=== PATIENT | female | born 1950 | race Two or more races ===

== ENCOUNTER 2024-02-08 16:30 | Inpatient (IN) | payer MEDICARE, MEDICAID ==
[~2024-02-08] VITALS: Ht 152.4 cm; Wt 81.8 kg
--- NOTE | 2024-02-08 16:44 | ED.PDOC ---
Altered Mental Status HPI Comments 73 y.o female presents to the ED via EMS for an evaluation of confusion. EMS reports called today stating he found patient on the ground next to her bed, did not hear her fall. Patient was diagnosed with ovarian cancer and then brain cancer which changed her baseline and is A+O x 1 per EMS. Patient was foun d soiled on the floor by EMS, unable to obtain information by patient. No head pain, SOB, or other symptoms recorded. Time Seen by MD: 16:35 Reviewed Notes: Nurses Notes, Benefits Advisor Notes, Medications, Allergies Allergies: Coded Allergies: NO KNOWN ALLERGIES (Unverified , 02/08/24) Information Source: Emergency Med Personnel Mode of Arrival: EMS Severity: Unable to Care for Self Timing: Came on: Gradually Duration: Since onset Prehospital treatment: 12 Lead EKG, International Marketing Manager Quality: Change in Behavior, Confusion Recent: None History of: Other Past Medical History PAST MEDICAL HISTORY: Cancer Surgical History: Unobtainable GAME WARDEN History: Unknown Family History Family History: Unknown Social History Smoker: Unknown Alcohol: Unknown Drugs: Unknown Lives In: Home Unable to Obtain due to: Altered Mental Status Physical Exam General Appearance: Moderate Distress HEENT: Normal ENT Inspection, Pharynx Normal, TMs Normal Neck: Full Range of Motion, Non-Tender, Normal, Normal Inspection Respiratory: Chest Non-Tender, Lungs Clear, No Accessory Muscle Use, No Respiratory Distress, Normal Breath Sounds Cardiovascular: No Edema, No JVD, No Murmur, No Gallop, Normal Peripheral Pulses, Tachycardia Breast Exam: Deferred Gastrointestinal: Other (Midline scar) Genitalia: Deferred Pelvic: Deferred Rectal: Deferred Extremities: No pedal edema Musculoskeletal : Apperance: Normal Neurologic: Alert Cerebellar Function: NOT DONE Reflexes: NOT DONE Skin: Dry, Normal Color, Warm Peripheral Pulses: 3+ Radial (R), 3+ Radial (L) Lymphatic: No Adenopathy Was a procedure done? Was a procedure done?: No Differential Diagnosis (ALOC) Differential Diagnosis: Dehydration, Sepsis, Closed Head Injury, Other X-Ray, Labs, Meds, VS Vital Signs Date Time Temp Pulse Resp B/P (MAP) Pulse Ox O2 Delivery O2 Flow Rate FiO2 02/08/24 16:35 99.2 105 18 128/73 (91) 94 Patient appropriate. Vitals stable. History of ovarian cancer with metastasis. Possible fall. No obvious injury. Difficult to communicate with the patient. Waiting for family. Reviewed her previous visit. Explained to the patient. Continue monitor and storage bin tender. EKG reviewed does not show any acute changes. Will be followed by night provider Lane. Time of 1ST Reevaluation: 16:44 Reevaluation 1ST: Unchanged Patient Education/Counseling: Other Family Education/Counseling: No Family Present Assigned to Dr. Sherman Departure 1 Departure Time of Disposition: 16:56 Impression: Primary Impression: Head injury Qualified Codes: S09.90XA - Unspecified injury of head, initial encounter Disposition: ADMITTED INPATIENT Admit to: Med Surg Condition: Guarded Critical Care Note Critical Care Time?: Yes (45 min-critical care time only) Stability Stability form required: No I personally scribed for DOMI SHAW MD ([email or web address]) on 02/08/24 at 16:44. Electronically submitted by Lesia Manzano ([facility]). DOMI SHAW MD Feb 08, 2024 16:44
[2024-02-08] MEDS: SODIUM CHLORIDE 0.9% 1,000 ML IV ONE ×2 (16:45)
--- NOTE | 2024-02-08 17:31 | DVH ---
EXAM: CT HEAD WITHOUT CONTRAST INDICATION: FALL TECHNIQUE: CT of the head without intravenous contrast. Radiation Dose Information: CT Dose: CTDI volume is 53.19 mGy. Dose-length product is 941.96 mGy*cm The dose indicators for CT are the volume Computed Tomography (CT) Dose Index (CTDIvol) and the Dose Length Product (DLP), and are measured in units of mGy and mGy-cm, respectively. These indicators are not patient dose, but values generated from the CT scanner acquisition factors. The report includes radiation exposure data for exposures received during this examination. COMPARISON: None FINDINGS: There is no evidence of acute intracranial hemorrhage, extra-axial collection, mass effect, midline s hift, herniation or hydrocephalus. Status post craniotomy posterior right parietal skull with area of encephalomalacia may be postoperat eli. The ventricles, sulci and cisterns are age appropriate. The vega-white differentiation is intact. Patchy periventricular and subcortical white matter hypoattenuation is nonspecific but may be related to small vessel ischemic disease. The visualized paranasal sinuses and mastoid air cells are clear. The surrounding soft tissues and osseous structures are unremarkable. IMPRESSION: 1. Status post right craniotomy posterior parietal lobe with underlying area of encephalomalacia most likely postoperative. 2. No findings of acute hemorrhage 3. No paranasal sinus disease 4. No displaced skull fractures.
[2024-02-08 17:55] LABS: Basophils # (auto) 0 10 ^3/uL (0-0.2); Basophils % (auto) 0.2 % (0.0-2.0); Eosinophils # (auto) 0 10 ^3/uL (0-0.8); Eosinophils % (auto) 0.2 % (0.0-7.0); Hematocrit 41.8 % (36.0-46.0); Hemoglobin 14.2 g/dL (12.2-16.2); Lymphocytes # (auto) 0.9 10 ^3/uL (0.4-5.4); Lymphocytes % (auto) 13.6 % (10.0-50.0); Mean Corpuscular Hemoglobin 31.5 pg (28.0-32.0); Mean Corpuscular Volume 92.6 fL (80.0-100.0); Monocytes # (auto) 0.7 10 ^3/uL (0-1.3); Monocytes % (auto) 10.7 % (0.0-12.0); Neutrophils # (auto) 5.1 10 ^3/uL (1.6-8.6); Neutrophils % (auto) 75.3 % (37.0-80.0); Nucleated Red Blood Cells % 0.1 %; Platelet Count (auto) 169 10^3/uL (140-450); Red Blood Cells 4.52 10^6/uL (4.0-5.20); Red Cell Distribution Width 13.8 % (11.8-14.3); White Blood Cell 6.8 10^3/uL (4.4-10.8)
[2024-02-08 17:59] LABS: Chloride 106 mmol/L (98-107); Potassium 3.5 mmol/L (3.5-5.1); Sodium 139 mmol/L (136-145)
[2024-02-08 18:00] LABS: Anion Gap 10 (5-15); Carbon Dioxide 23 mmol/L (20-31)
[2024-02-08 18:01] LABS: Calcium 9.5 mg/dL (8.7-10.4)
[2024-02-08 18:05] LABS: BUN/Creatinine Ratio 17.3 (10.0-20.0); Blood Urea Nitrogen 13 mg/dL (9-23); Glucose 159 mg/dL (74-106)
--- NOTE | 2024-02-08 19:07 | ECG ---
[facility] Test Date: 2024-02-08 Test Time: 16:55:46 Pat Name: GREG DAMON Department: ER Room: Gender: F Theatre Manager: NOEMI : 1950 Requested By: DOMI SHAW Order Number: [id number] Reading MD: Measurements Intervals [place] Rate: 106 P: 46 [place]: 165 QRS: 1 QRSD: 89 T: 21 QT: 358 QTc: 476 Interpretive Statements Sinus tachycardia Borderline T abnormalities, anterior leads Please click the below link to view image of tracing.
[2024-02-08 19:10] VITALS: PULSE 98; RESP 18; O2SAT 94
[2024-02-08 19:25] VITALS: PULSE 100; RESP 18; O2SAT 95
[2024-02-08] MEDS ORDERED: MORPHINE SULFATE INJ 2 MG/ml SYRG IV PRN (20:30)
[2024-02-08] MEDS ORDERED: NITROGLYCERIN 0.4 MG SL TAB SL PRN (20:30)
[2024-02-08] MEDS ORDERED: ONDANSETRON HCL 4 MG/2 ML VIAL IV PRN (20:30)
[2024-02-08] MEDS ORDERED: HYDROcodone-ACET 5/325MG TAB PO PRN (20:30)
--- NOTE | 2024-02-08 21:25 | DVHHPRES ---
History of Present Illness Resident Creating Document: DEE CUEVAS RESIDENT History of Present Illness This is a 72 years old female with past medical history of ovarian cancer with brain metastasis, status post craniotomy, advanced dementia presented to the ED via EMS for an evaluation of altered level of consciousness. According to the family the patient was unresponsive and fall today morning and was not able to answer any questions that prompted this visit. Daughter also mentioned 2 days ago the patient had sore throat and fever and became more confused, restless and home health nurse was called the EMS because the patient's heart rate was 115 and blood sugar was 264. She was diagnosed with ovarian cancer 20 years ago and underwent craniotomy for brain metastasis 16 years ago and she is following with neurologist in [facility] for her dementia. The patient family did not mentioned any history of recent chest pain, shortness of breath, dizziness, abdominal pain, nausea, vomiting or any change in bowel and bladder habit. Past Medical History Ovarian cancer, dementia Past Surgical History Craniotomy Family History: None Smoke: No ALCOHOL: none Drugs: None Lives: with Family Review of Systems Review of Systems Review of system could not be assessed as patient is A&O x1 Allergies: Coded Allergies: NO KNOWN ALLERGIES (Unverified , 02/08/24) Medications Current Medications Medications Dose Ordered Sig/Radha Route Start Time Stop Time Status Last Admin Dose Admin Sodium Chloride 10 ml Q8HR IV 02/08/24 22:00 Acetaminophen/ Hydrocodone Bitart 1 tab Q4HP PRN PO 02/08/24 20:30 Ondansetron HCl 4 mg Q4HP PRN IV 02/08/24 20:30 Nitroglycerin 0.4 mg Q5MINP PRN SL 02/08/24 20:30 Morphine Sulfate 2 mg Q30M PRN IV 02/08/24 20:30 Exam Vital Signs Vital Signs Date Time Temp Pulse Resp B/P (MAP) Pulse Ox O2 Delivery O2 Flow Rate FiO2 02/08/24 19:10 98 18 94 Room Air* 0 21 02/08/24 19:10 141/68 (92) 02/08/24 16:35 99.2 Exam Physical examination: General Appearance: Alert, Oriented X3, Cooperative, No acute distress HEENT: Atraumatic, PERRLA, EOMI, Mucous membrane moist/pink Respiratory: Clear to auscultation, Normal air movement Cardiovascular: Regular rate, Normal S1, Normal S2, No murmurs, no chest wall tenderness Abdominal: Normal bowel sounds, Soft, No tenderness, No hepatospenomegaly, No masses Extremities: No clubbing, No cyanosis, No edema, Normal pulses, No tenderness/swelling Skin: No rashes, No breakdown, No significant lesion Neuro: Normal gait, Normal speech, Strength at 5/5 X4 ext, Normal tone, Sensa tion intact, grossly intact cranial nerves. Psych/Mental Status: Mental status NL, Mood NL Labs/Xrays Labs Test 02/08/24 17:11 Range/Units White Blood Count 6.8 4.4-10.8 10^3/uL Red Blood Count 4.52 4.0-5.20 10^6/uL Hemoglobin 14.2 12.2-16.2 g/dL Hematocrit 41.8 36.0-46.0 % Mean Corpuscular Volume 92.6 80.0-100.0 fL Mean Corpuscular Hemoglobin 31.5 28.0-32.0 pg Mean Corpuscular Hemoglobin Concent 34.0 32.0-36.0 g/dL Red Cell Distribution Width 13.8 11.8-14.3 % Platelet Count 169 140-450 10^3/uL Mean Platelet Volume 6.8 L 6.9-10.8 fL Neutrophils (%) (Auto) 75.3 37.0-80.0 % Lymphocytes (%) (Auto) 13.6 10.0-50.0 % Monocytes (%) (Auto) 10.7 0.0-12.0 % Eosinophils (%) (Auto) 0.2 0.0-7.0 % Basophils (%) (Auto) 0.2 0.0-2.0 % Neutrophils # (Auto) 5.1 1.6-8.6 10 ^3/uL Lymphocytes # (Auto) 0.9 0.4-5.4 10 ^3/uL Monocytes # (Auto) 0.7 0-1.3 10 ^3/uL Eosinophils # (Auto) 0 0-0.8 10 ^3/uL Basophils # (Auto) 0 0-0.2 10 ^3/uL Nucleated Red Blood Cells 0.1 % Sodium Level 139 136-145 mmol/L Potassium Level 3.5 3.5-5.1 mmol/L Chloride Level 106 98-107 mmol/L Carbon Dioxide Level 23 20-31 mmol/L Anion Gap 10 5-15 Blood Urea Nitrogen 13 9-23 mg/dL Creatinine 0.75 0.550-1.02 mg/dL Glomerular Filtration Rate Calc 85 >90 mL/min BUN/Creatinine Ratio 17.3 10.0-20.0 Serum Glucose 159 H 74-106 mg/dL Calcium Level 9.5 8.7-10.4 mg/dL Assessment/Plan Assessment/Plan Assessment and plan: # Acute metabolic encephalopathy due to unspecified cause - CT head revealed status post right craniotomy posterior parietal lobe with underlying area of encephalomalacia most likely postoperative without any acute intracranial abnormalities. - ammonia level - CMP revealed normal study - Patient is A&O x1 - Monitor the vitals closely # Advanced dementia - Continue donepezil 10 mg p.o. daily and memantine 5 mg p.o. daily # Type 2 diabetes mellitus, hemoglobin A1c 6.5 - Mild sliding scale of insulin # Hypokalemia - Replenished # DVT prophylaxis - Lovenox 40 mg sc daily Goal of care could not be discussed as patient is A&O x1 Plan of treatment discussed with Dr. Carrasco Plan discussed with: Patient, Other My Orders Orders - DEE CUEVAS RESIDENT Procedure Category Date Status Time Admit ADMIT 02/08/24 Transmitted 20:24 Code Status CODE 02/08/24 Transmitted 20:24 Sodium Chloride Lock PHA 02/08/24 In Process (Saline Lock Ns) 22:00 Oxygen Per Hour RT 02/08/24 Transmitted 20:24 Hydrocodone-Acet PHA 02/08/24 In Process 5/325mg Tab ([place] 20:30 Ondansetron Hcl PHA 02/08/24 In Process (Zofran) 20:30 Complete Blood Count LAB 02/09/24 Verified 04:00 Comprehensive LAB 02/09/24 Verified Metabolic Panel 04:00 Nitroglycerin PHA 02/08/24 In Process Sublingual (Ntrostat 20:30 Morphine Sulfate PHA 02/08/24 In Process Injection 20:30 Oxygen By Nasal RT 02/08/24 Transmitted Cannula 20:24 Stat Ekg For Chest ALESSANDRO 02/08/24 In Process Pain 20:24 Notify Of Changes ALESSANDRO 02/08/24 In Process From Base 20:24 Shotgun Shell Assembly Machine Adjuster For ALESSANDRO 02/08/24 In Process 24 Hours 20:24 Emergency Dysrhythmia [facility] 02/08/24 In Process Protocol 20:24 Rhythm Strips Once [facility] 02/08/24 In Process Every Shift 20:24 Date of Service: Feb 08, 2024 Billing Provider: LEIDY CARRASCO MD Common Visit Codes: 72313-PHIOKBQ INP/OBS CARE (HIGH) Secondary Visit Codes: 73023-[id number] CARE PLAN 30 MINUTES DEE CUEVAS RESIDENT Feb 08, 2024 21:25 LEIDY CARRASCO MD Feb 09, 2024 17:40
--- NOTE | 2024-02-08 22:39 | DVH ---
CHEST RADIOGRAPH Indication:shortness of breath Technique: Single frontal view of the chest was obtained Comparison: None FINDINGS: Lines and Tubes: None Lungs: No focal consolidation. Pleura: No effusion. No pneumothorax. Cardiomediastinal contours: Unremarkable Bones: No acute osseous abnormality. IMPRESSION: 1. No acute cardiopulmonary disease.
[2024-02-08] MEDS: SODIUM CHLOR 0.9% PF (SALINE LOCK) 10ML VIAL/SYR IV SCH (23:28)
[2024-02-09] MEDS ORDERED: DEXTROSE (50%) 50ML SYRG IV PRN (01:30)
[2024-02-09 01:54] LABS: Basophils # (auto) 0 10 ^3/uL (0-0.2); Basophils % (auto) 0.4 % (0.0-2.0); Eosinophils # (auto) 0 10 ^3/uL (0-0.8); Eosinophils % (auto) 0.3 % (0.0-7.0); Hematocrit 40.2 % (36.0-46.0); Hemoglobin 13.7 g/dL (12.2-16.2); Lymphocytes # (auto) 1.2 10 ^3/uL (0.4-5.4); Lymphocytes % (auto) 17.8 % (10.0-50.0); Mean Corpuscular Hemoglobin 31.4 pg (28.0-32.0); Mean Corpuscular Hgb Conc. 34.1 g/dL (32.0-36.0); Mean Corpuscular Volume 92.1 fL (80.0-100.0); Monocytes # (auto) 0.7 10 ^3/uL (0-1.3); Neutrophils # (auto) 4.7 10 ^3/uL (1.6-8.6); Neutrophils % (auto) 71.5 % (37.0-80.0); Nucleated Red Blood Cells % 0.2 %; Platelet Count (auto) 159 10^3/uL (140-450); Red Blood Cells 4.36 10^6/uL (4.0-5.20); Red Cell Distribution Width 13.9 % (11.8-14.3); White Blood Cell 6.6 10^3/uL (4.4-10.8)
[2024-02-09 02:12] LABS: Alanine Aminotransferase 24 U/L (7-40); Albumin 3.8 g/dL (3.2-4.8); Alkaline Phosphatase 56 U/L (46-116); Anion Gap 9 (5-15); Aspartate Aminotransferase 21 U/L (13-40); BUN/Creatinine Ratio 15.9 (10.0-20.0); Bilirubin, Total 0.6 mg/dL (0.2-1.0); Blood Urea Nitrogen 11 mg/dL (9-23); Carbon Dioxide 25 mmol/L (20-31); Chloride 105 mmol/L (98-107); Glucose 153 mg/dL (74-106); Potassium 3.2 mmol/L (3.5-5.1); Sodium 139 mmol/L (136-145); Total Protein 6.4 g/dL (5.7-8.2)
[2024-02-09] MEDS: ACCU-CHEK COMFORT CURVE STRIP VI SCH (06:46)
[2024-02-09] MEDS: InsuLIN REG 1unit/0.01ml Soln (100units/ml) SC SCH (06:46)
[2024-02-09] MEDS: POTASSIUM EFFERVESENT TAB 25 MEQ PO ONE (06:59)
[2024-02-09 07:31] VITALS: PULSE 80; RESP 16; O2SAT 96
[2024-02-09 09:11] VITALS: PULSE 79; RESP 17; O2SAT 98
[2024-02-09] MEDS: MEMANTINE HCL 5 MG TAB PO SCH (09:35)
[2024-02-09] MEDS: ENOXAPARIN SOD 40 MG/0.4 ML SYRINGE SC SCH (09:37)
[2024-02-09] MEDS ORDERED: MEMA7CAP8 PO (10:55)
[2024-02-09] MEDS ORDERED: SITA50TA28 (10:55)
[2024-02-09] MEDS ORDERED: CHOL20007 OR (10:55)
[2024-02-09] MEDS ORDERED: ROSU5TAB24 PO (10:55)
[2024-02-09] MEDS ORDERED: LATA0.008 EACHEYE (10:55)
[2024-02-09 10:58] VITALS: BP 131/74; PULSE 79; RESP 17; TEMP 97.7; O2SAT 98
[2024-02-09 11:06] LABS: Urine Bacteria None Seen /hpf (None Seen)
[2024-02-09 11:39] LABS: Urine Blood Negative /uL (Negative); Urine Clarity Clear (Clear); Urine Color Yellow (Yellow); Urine Protein, UAD TRACE (Negative); Urine Urobilinogen Normal (Negative); Urine WBC 2 /hpf (0 - 5)
[2024-02-09 11:47] LABS: Amphetamine Screen, Urine Neg (NEGATIVE); Benzodiazephine Screen, Urine Neg (NEGATIVE)
[2024-02-09 11:48] LABS: Barbiturate Scree,Urine Neg (NEGATIVE); Cannabinoid Screen, Urine Neg (NEGATIVE); Cocaine Screen, Urine Neg (NEGATIVE); Opiate Scree,Urine Neg (NEGATIVE); Phencyclidine Screen, Urine Neg (NEGATIVE)
--- NOTE | 2024-02-09 13:22 | DVHDS2 ---
Discharge Summary Date of Admission Feb 08, 2024 at 20:24 Date of Discharge: Feb 09, 2024 Labs/Diagnostic Data: Laboratory Results Test 02/09/24 11:30 02/09/24 10:00 02/09/24 07:39 02/09/24 01:39 Urine Color Yellow (Yellow) Urine Clarity Clear (Clear) Urine pH 6.0 (5.0-9.0) Urine Specific [place] 1.020 (1.001-1.035) Urine Protein Trace (Negative) Urine Ketones Negative (Negative) Urine Blood Negative /uL (Negative) Urine Nitrite Negative (Negative) Urine Bilirubin Negative (Negative) Urine Urobilinogen Normal mg/dL (Negative) Urine Leukocyte Esterase Negative /uL (Negative) Urine RBC 1 /hpf (0 - 4) Urine WBC 2 /hpf (0 - 5) Urine Squamous Epithelial Cells Few /hpf (<5) Urine Bacteria None seen /hpf (None Seen) Urine Glucose 2+ mg/dL (Normal) Urine Opiates Screen Neg (NEGATIVE) Urine Fentanyl Screen Neg (NEGATIVE) Urine Barbiturates Screen Neg (NEGATIVE) Urine Phencyclidine Screen Neg (NEGATIVE) Urine Amphetamines Screen Neg (NEGATIVE) Urine Benzodiazepines Screen Neg (NEGATIVE) Urine Cocaine Screen Neg (NEGATIVE) Urine Cannabinoids Screen Neg (NEGATIVE) POC Glucose 143 mg/dl (70-106) White Blood Count 6.6 10^3/uL (4.4-10.8) Red Blood Count 4.36 10^6/uL (4.0-5.20) Hemoglobin 13.7 g/dL (12.2-16.2) Hematocrit 40.2 % (36.0-46.0) Mean Corpuscular Volume 92.1 fL (80.0-100.0) Mean Corpuscular Hemoglobin 31.4 pg (28.0-32.0) Mean Corpuscular Hemoglobin Concent 34.1 g/dL (32.0-36.0) Red Cell Distribution Width 13.9 % (11.8-14.3) Platelet Count 159 10^3/uL (140-450) Mean Platelet Volume 6.5 fL (6.9-10.8) Neutrophils (%) (Auto) 71.5 % (37.0-80.0) Lymphocytes (%) (Auto) 17.8 % (10.0-50.0) Monocytes (%) (Auto) 10.0 % (0.0-12.0) Eosinophils (%) (Auto) 0.3 % (0.0-7.0) Basophils (%) (Auto) 0.4 % (0.0-2.0) Neutrophils # (Auto) 4.7 10 ^3/uL (1.6-8.6) Lymphocytes # (Auto) 1.2 10 ^3/uL (0.4-5.4) Monocytes # (Auto) 0.7 10 ^3/uL (0-1.3) Eosinophils # (Auto) 0 10 ^3/uL (0-0.8) Basophils # (Auto) 0 10 ^3/uL (0-0.2) Nucleated Red Blood Cells 0.2 % Sodium Level 139 mmol/L (136-145) Potassium Level 3.2 mmol/L (3.5-5.1) Chloride Level 105 mmol/L (98-107) Carbon Dioxide Level 25 mmol/L (20-31) Anion Gap 9 (5-15) Blood Urea Nitrogen 11 mg/dL (9-23) Creatinine 0.69 mg/dL (0.550-1.02) Glomerular Filtration Rate Calc 93 mL/min (>90) BUN/Creatinine Ratio 15.9 (10.0-20.0) Serum Glucose 153 mg/dL (74-106) Calcium Level 9.0 mg/dL (8.7-10.4) Total Bilirubin 0.6 mg/dL (0.2-1.0) Aspartate Amino Transferase (AST) 21 U/L (13-40) Alanine Aminotransferase (ALT) 24 U/L (7-40) Alkaline Phosphatase 56 U/L (46-116) Ammonia 17 umol/L (11-32) Total Protein 6.4 g/dL (5.7-8.2) Albumin 3.8 g/dL (3.2-4.8) Folic Acid 22.04 ng/mL (>5.38) Test 02/08/24 17:15 Hemoglobin A1c 6.5 % A1C (<5.7) Vitamin B12 Level 424 pg/mL (211-911) Vitamin D 25-Hydroxy 47.6 ng/mL (30.0-100) Thyroid Stimulating Hormone (TSH) 1.15 uIU/mL (0.55-4.78) Other Laboratory Tests 02/09/24 01:39 Brief Hx & Hospital Course: Final diagnoses: Altered level of consciousness and weakness, undetermined etiology No infection Underlying dementia History of metastatic ovarian cancer to the brain status post craniotomy Hypokalemia, replaced COVID+ Influenza negative 73-year-old female who was admitted for altered level of consciousness and weakness. According to her who is at the bedside he said she became sick after she ate she vomited once and she was unresponsive She was admitted overnight and workup was mostly negative including chest x-ray and urinalysis and CT scan of the head which showed old surgical changes but no acute pathology Her white count is normal No fever The patient is asymptomatic now and would like to go home Discharged home on the same home medications and follow up with her primary care physician as soon as possible Add Vitamins D3, C and Zinc Condition at Discharge: Stable Final Diagnosis/Problems List Altered level of consciousness most likely due to dementia Alzheimer's dementia History of metastatic ovarian cancer Discharge Disposition: Home SNF Discharge Will this Physician continue t: No Discharge Instruct/Medications Diet: Cardiac 2g Na,low cholest Activity: No Restrictions, As Tolerated Follow Up/Referral: PCP as soon as possible Medications: Same home medications Discharge Statement: "Patient was advised to return to the ER or call 911 if any headaches, dizziness, shortness of breath, chest pain, abdominal pain, bleeding, fevers, or worsening of medical condition. Patient was counseled about treatment plan, medications, possible side effects, patientverbalized understanding. All questions were answered to the best of my ability. This discharge took greater then 30 minutes in planning, reviewing documentation, counseling the patient, and discussing with other team members." ASSESSMENT ASSESSMENT Assessment Altered level of consciousness most likely due to dementia Alzheimer's dementia History of metastatic ovarian cancer Date of Service: Feb 09, 2024 Billing Provider: YURI ANTUNEZ MD Common Visit Codes: 28640-ZYF/OBS DISCH DAY >30min YURI ANTUNEZ MD Feb 09, 2024 13:22
[2024-02-09 13:26] VITALS: BP 131/74; PULSE 79; RESP 17; TEMP 97.7; O2SAT 98
[2024-02-09 13:54] LABS: Rapid Influenza A Negative (Negative); Rapid Influenza B Negative (Negative)
[2024-02-09 13:58] LABS: COVID19 ANTIGEN SOFIA FIA POSITIVE (NEGATIVE)
[2024-02-09] MEDS ORDERED: ASCO500T11 PO (14:11)
[2024-02-09] MEDS ORDERED: ZINC30CA PO (14:11)
--- NOTE | 2024-02-09 17:54 | DVHSR ---
APPROVED REPORT EXAM: Two-dimensional and M-mode echocardiogram with Doppler and color Doppler. INDICATION Syncope RISK FACTORS Height: 60, Weight: 180 DIMENSIONS LVDd (3.8-5.7cm)LA (2D)3.0 (1.9-4.0cm)Aortic Root3.3 (2.0-3.7cm) LVDs (2.5-4.0cm)LA (MM) (1.9-4.0cm)Aortic Cusp Exc1.5 (1.5-2.0cm) EF (%) 62.0 (55-70%)Rt. Atrium3.0 (1.9-4.0cm)Asc. Aorta3.5 cm Mitral Valve MitralMitral Stenosis E wave0.69m/sMV Mean GR.mmHg A wave1.03m/sMV Peak GR.mmHg E/A ratio0.72D MVAcm2 DECEL [id number] 1/2 Timems Aortic Valve Aortic ValveAortic Stenosis V10.84m/Yomi Mean GR.3mmHg V21.12m/Yomi Peak GR.5mmHg LVOT Diameter1.9 (1.8-2.4cm)Doppler AVA2.13cm2 AI P 1/2 Drak283.12ms Pulmonic Valve V20.66m/s Tricuspid Valve [id number] Conclusion lvef 60% by visual estimate moderate LVH cher l rv function left atrium enlarge no severe valve abnormalities noted
[2024-02-09] MEDS ORDERED: DONEPEZIL HYDROCHLORIDE 5 MG TAB PO SCH (22:00)
== END 2024-02-09 16:54 | disposition home or self-care (01) | DRG 42 ==
LOC: ER 16:30 → EDBD 16:30 → OVERFLOW 20:24 → CENTRAL 02-09 08:38
PROVIDERS: ADMIT Internal Medicine Geriatric Medicine; ATTEND Internal Medicine Geriatric Medicine
DX: G30.9 Alzheimer's disease, unspecified (principal); U07.1 COVID-19; G93.41 Metabolic encephalopathy; F02.80 Dementia in other diseases classified elsewhere, unspecified severity, without behavioral disturbance, psychotic disturbance, mood disturbance, and anxiety; S09.90XA Unspecified injury of head, initial encounter; E87.6 Hypokalemia; W18.39XA Other fall on same level, initial encounter; Z85.43 Personal history of malignant neoplasm of ovary; Y93.89 Activity, other specified; Y92.89 Other specified places as the place of occurrence of the external cause; Y99.8 Other external cause status
CPT/HCPCS: 36415; 70450; 71045; 80048; 80053; 80307; 81001; 82140; 82306; 82607; 82746; 82962; 83036; 84443; 85025; 87426; 87804; 93005; 93306; 99291; G0378